=== PATIENT | male | born 1945 | race Caucasian/White ===

== ENCOUNTER → 2017-09-08 08:34 | Outpatient (CLI) | payer MEDICARE, OTHER, SELFPAY ==
[2017-09-08 08:58] LABS: Reticulocyte Count, Percent 0.8 % (0.87-2.60)
[2017-09-08 08:59] LABS: Add Manual Diff / Slide Review NO; Basophils Percent Auto 0.7 % (0-2); Eosinophils Percent Auto 4.4 % (2-4); Hematocrit 41.9 % (41-53); Hemoglobin 14.4 g/dL (13.5-17.5); Mean Corpuscular HGB Conc 34.3 % (30-36); Mean Corpuscular Hemoglobin 30.6 PG (26-34); Mean Corpuscular Volume 89.3 fL (80-100); Monocytes Percent Auto 7.5 % (3-14); Neutrophils Absolute Auto 2900 /uL (3000-5900); Neutrophils Percent Auto 58.4 % (50-75); Platelet Count 138 X10^3/uL (150-400); Red Blood Cell Count 4.69 X10^6/uL (4.5-5.9); Red Cell Distribution Width 16.3 % (11.6-14.8); White Blood Cell Count 4.9 X10^3/uL (4.5-11.0)
[2017-09-08 09:19] LABS: Alanine Aminotransferase 30 IU/L (21-72); Albumin 3.7 g/dL (3.5-5.0); Albumin Globulin Ratio 1.3 (1.0-2.8); Alkaline Phosphatase 72 U/L (38-126); Aspartate Aminotransferase 47 IU/L (17-59); BUN Creatinine Ratio 24.5 (6-22); Bilirubin Total 1.7 mg/dL (0.2-1.3); Blood Urea Nitrogen 27 mg/dL (9-20); Calcium 9.4 mg/dL (8.4-10.2); Carbon Dioxide 27 mmol/L (22-32); Chloride 107 mmol/L (98-107); Estimated Glomerular Filt Rate > 60.0 mL/min (>60); Globulin 2.9 g/dL (1.7-4.1); Glucose 90 mg/dL (80-110); HEMOLYSIS < 15 (0-50); Lactate Dehydrogenase 672 U/L (313-618); Sodium 141 mmol/L (137-145); Total Protein 6.6 g/dL (6.3-8.2)
[2017-09-08 09:39] LABS: HEMOLYSIS < 15 (0-50); Iron 112 ug/dL (49-181)
[2017-09-08 09:50] LABS: Percent Iron Saturation 34 % (20-50); Total Iron Binding Capacity 334 ug/dL (261-462); Transferrin 260 mg/dL (206-381)
[2017-09-08 09:52] LABS: Ferritin 15.8 ng/mL (17.9-464)
== END ==
PROVIDERS: Family Provider Urology; PCP Family Medicine; Visit Provider Internal Medicine Hematology & Oncology
DX: D64.9 Anemia, unspecified (principal)
CPT/HCPCS: 36415; 80053; 82728; 83540; 83550; 83615; 85025; 85045

== ENCOUNTER 2018-07-31 08:44 | Emergency (ER) | payer MEDICARE, OTHER, SELFPAY ==
[2018-07-31 08:55] VITALS: BP 148/91; PULSE 67; RESP 20; TEMP 36.5; O2SAT 99
--- NOTE | 2018-07-31 09:09 | ED.MALEGU ---
HPI - Male Genitourinary General Chief complaint: Urogenital-Male Stated complaint: GROSS HEMATURIA Time Seen by Provider: 07/31/18 08:51 Source: patient Mode of arrival: ambulatory Limitations: no limitations History of Present Illness HPI Narrative: Patient is a 73-year-old male who presents with gross blood in his urine. He has had hematuria in the past. 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 It was removed and he has been monitored by Urology every 6 months. He has not had any read gross in number of years. However he has had intermittent hematuria. All this morning he got up to urinate he noticed he had some pressure. And then he noticed gross blood in his urine. He has some mild abdominal discomfort. No nausea vomiting or fever. He takes aspirin daily MD Complaint: other (Hematuria) Related Data Home Medications Medication Instructions Recorded Confirmed Fish Oil 1,000 mg PO BID #0 07/24/10 03/03/18 CHOLECALCIFEROL (VITAMIN D3) 5,000 iu PO QAM #0 08/05/10 03/03/18 (VITAMIN D) ACETAMINOPHEN (#TYLENOL) 500 mg PO Q4HP #0 05/05/11 03/03/18 [COQ 10] 100 mg PO QPM #0 09/03/15 03/03/18 ascorbic acid (vitamin C) 1,000 mg PO QDAY #0 07/11/16 03/03/18 albuterol sulfate [Ventolin HFA] 2 puff INHALATION Q4-6H PRN 08/26/17 03/03/18 atorvastatin [Lipitor] 5 mg PO DAILY 08/26/17 03/03/18 clobetasol [Temovate] 1 applic TOPICAL BID PRN 08/26/17 03/03/18 diclofenac sodium [Voltaren] 2 g TOPICAL PRN PRN 08/26/17 03/03/18 fluticasone propionate [Flonase 2 spray INTRANASAL QDAY PRN 08/26/17 03/03/18 Allergy Relief] hydrocortisone [Proctosol HC] 1 applic PA QD-BID PRN 08/26/17 03/03/18 metoprolol succinate mg PO DAILY 08/26/17 03/03/18 Previous Rx's Medication Instructions Recorded silver sulfadiazine [Silvadene] 1 % TOPICAL PRN PRN #1 gm 09/18/15 Oral Appliance for Mild IZABELLA #1 ea 04/22/18 Allergies Allergy/AdvReac Type Severity Reaction Status Date / Time succinylcholine Allergy Severe Anaphylaxis Verified 07/31/18 10:41 codeine AdvReac Mild Gastrointestinal Verified 07/31/18 10:41 Upset iodine AdvReac Mild Rash Verified 07/31/18 10:41 morphine AdvReac Mild Gastrointestinal Verified 07/31/18 10:41 Upset Sulfa (Sulfonamide AdvReac Mild Gastrointestinal Verified 07/31/18 10:41 Antibiotics) Upset Review of Systems Review of Systems GENERAL: Denies chills,fever HEENT: Denies throat pain RESPIRATORY: Denies dyspnea, cough, wheezing CARDIOVASCULAR: Denies chest pain, palpitations GASTROINTESTINAL: Denies nausea, vomiting : See HPI MUSCULOSKELETAL: Denies extremity pain, injury SKIN: No rash, no laceration, no pruritus NEUROLOGIC: Denies weakness, dizziness, headache, numbness 8 point review of systems is negative except for those stated above and HPI PFSH Medical History History of obstructive sleep apnea (Suspected) Surgical History H/O aortic valve replacement (Acute) H/O mitral valve replacement (Acute) S/P coronary artery bypass graft x 2 (Acute) History of angioplasty Status post arthroscopy Social History (Updated 03/03/18 @ 12:52 by KELSI Hanson) marital status: details: to gabriel Rashid [facility] household members: spouse lives independently: Yes caregiver/support person: No Smoking Status: Never smoker Social History marital status: details: to gabriel Rashid [facility] household members: spouse lives independently: Yes caregiver/support person: No Smoking Status: Never smoker Exam Initial Vital Signs Initial Vital Signs: Vital Signs Temperature 97.7 F 07/31/18 08:55 Pulse Rate 67 07/31/18 08:55 Respiratory Rate 20 07/31/18 08:55 Blood Pressure 148/91 H 07/31/18 08:55 Pulse Oximetry 99 07/31/18 08:55 GENERAL: Well-appearing, well-nourished and in no acute distress. HEENT: Head atraumatic,EOMI, pupils reactive CARDIOVASCULAR: Regular rate and rhythm without murmurs, rubs or gallops. RESPIRATORY: Breath sounds equal bilaterally, no wheezes rales or rhonchi. ABDOMEN: Soft, nontender. Normoactive bowel sounds all 4 quadrants. No guarding or rebound. : Wilson catheter placed gross blood EXTREMITIES: Normal range of motion, no clubbing or edema. Neurovascularly intact NEUROLOGICAL: Alert and oriented x4.Normal gait and speech. SKIN: Warm, dry, no laceration, no petechiae, no rashes or lesions. Course Orders Ordered: ED Orders 07/31/18 08:50 Urinalysis and Microscopic Stat 07/31/18 11:11 Complete Blood Count AUTO DIFF Stat Comprehensive Metabolic Panel Stat Partial Thromboplastin Time Stat Prothrombin Time INR Stat Type and Screen Stat Discontinued Medications Sodium Chloride (Normal Saline Irrigation) 3,000 ml IRR NOW ONE Stop: 07/31/18 09:07 Last Admin: 07/31/18 09:38 Dose: 3,000 ml Consultations Consultation #1: Dr. Castellano urology consult in regards to hematuria recommend manually irrigation, and then continuous irrigation. Time: 11:12 Consultation #2: Dr. Bergman, hospitalist happily accepts patient for transfer Time: 12:37 Vital Signs - 8 hr 07/31/18 08:55 07/31/18 11:55 07/31/18 13:15 Temperature 97.7 F Pulse Rate 67 63 65 Respiratory Rate 20 15 Blood Pressure 148/91 H Blood Pressure [Left Arm] 131/73 144/89 H Pulse Oximetry 99 96 100 MDM - Male Genitourinary Lab Data Result diagrams: 07/31/18 11:11 07/31/18 11:11 Lab Results 07/31/18 07/31/18 07/31/18 Range/Units 08:50 11:11 11:11 WBC 6.8 (4.5-11.0) X10^3/uL RBC 4.37 L (4.5-5.9) X10^6/uL Hgb 14.9 (13.5-17.5) g/dL Hct 43.7 (41-53) % MCV 99.9 (80-100) fL MCH 34.2 H (26-34) PG MCHC 34.2 (30-36) % RDW 13.2 (11.6-14.8) % Plt Count 137 L (150-400) X10^3/uL Neut % (Auto) 77.1 H (50-75) % Lymph % (Auto) 16.4 L (25-40) % [place] % (Auto) 4.6 (3-14) % Eos % (Auto) 1.3 L (2-4) % Baso % (Auto) 0.6 (0-2) % Neut # (Auto) 5200 (5106-5046) /uL Lymph # (Auto) 1100 (0828-0245) /uL [place] # (Auto) 300 (0-900) /uL Eos # (Auto) 100 (0-450) /uL Baso # (Auto) 0 (0-100) /uL PT 13.7 H (10.1-12.7) SECONDS INR 1.2 (0.9-1.3) APTT 33 (26.4-36.2) SECONDS Sodium (137-145) mmol/L Potassium (3.4-5.1) mmol/L Chloride (98-107) mmol/L Carbon Dioxide (22-32) mmol/L BUN (9-20) mg/dL Creatinine (0.66-1.25) mg/dL Estimated GFR (>60) mL/min BUN/Creatinine Ratio (6-22) Glucose (80-110) mg/dL Calcium (8.4-10.2) mg/dL Total Bilirubin (0.2-1.3) mg/dL AST (17-59) IU/L ALT (21-72) IU/L Alkaline Phosphatase (38-126) U/L Total Protein (6.3-8.2) g/dL Albumin (3.5-5.0) g/dL Globulin (1.7-4.1) g/dL Albumin/Globulin Ratio (1.0-2.8) Urine Color Red Urine Appearance Turbid Urine pH TNP Ur Specific [place] TNP Urine Protein TNP Urine Glucose (UA) TNP Urine Ketones TNP Urine Occult Blood TNP Urine Nitrate TNP Urine Bilirubin TNP Urine Urobilinogen TNP Ur Leukocyte Esterase TNP Urine RBC >100/hpf (0-5/HPF) Urine WBC TNP Ur Squamous Epith Cells TNP Ur Transition Epith Cell TNP Ur Renal Epithelial Cell TNP Calcium Oxalate Crystal TNP Urine Bacteria Not Reportable Ur Culture Indicated? Cult not indicated Micro UA Comment Blood Type Antibody Screen 07/31/18 07/31/18 Range/Units 11:11 11:11 WBC (4.5-11.0) X10^3/uL RBC (4.5-5.9) X10^6/uL Hgb (13.5-17.5) g/dL Hct (41-53) % MCV (80-100) fL MCH (26-34) PG MCHC (30-36) % RDW (11.6-14.8) % Plt Count (150-400) X10^3/uL Neut % (Auto) (50-75) % Lymph % (Auto) (25-40) % [place] % (Auto) (3-14) % Eos % (Auto) (2-4) % Baso % (Auto) (0-2) % Neut # (Auto) (8681-9636) /uL Lymph # (Auto) (9029-4226) /uL [place] # (Auto) (0-900) /uL Eos # (Auto) (0-450) /uL Baso # (Auto) (0-100) /uL PT (10.1-12.7) SECONDS INR (0.9-1.3) APTT (26.4-36.2) SECONDS Sodium 141 (137-145) mmol/L Potassium 4.4 (3.4-5.1) mmol/L Chloride 109 H (98-107) mmol/L Carbon Dioxide 27 (22-32) mmol/L BUN 26 H (9-20) mg/dL Creatinine 1.10 (0.66-1.25) mg/dL Estimated GFR > 60.0 (>60) mL/min BUN/Creatinine Ratio 23.6 H (6-22) Glucose 118 H (80-110) mg/dL Calcium 9.2 (8.4-10.2) mg/dL Total Bilirubin 1.4 H (0.2-1.3) mg/dL AST 46 (17-59) IU/L ALT 32 (21-72) IU/L Alkaline Phosphatase 86 (38-126) U/L Total Protein 6.6 (6.3-8.2) g/dL Albumin 3.7 (3.5-5.0) g/dL Globulin 2.9 (1.7-4.1) g/dL Albumin/Globulin Ratio 1.3 (1.0-2.8) Urine Color Urine Appearance Urine pH Ur Specific [place] Urine Protein Urine Glucose (UA) Urine Ketones Urine Occult Blood Urine Nitrate Urine Bilirubin Urine Urobilinogen Ur Leukocyte Esterase Urine RBC (0-5/HPF) Urine WBC Ur Squamous Epith Cells Ur Transition Epith Cell Ur Renal Epithelial Cell Calcium Oxalate Crystal Urine Bacteria Ur Culture Indicated? Micro UA Comment Blood Type O Positive Antibody Screen Negative MDM Narrative Medical decision making narrative: Initially urine cleared quite easily with continuous irrigation. However sinus irrigation with. It became grossly bloody again. He had a total of 6 L of continuous irrigation and continue to be grossly bloody unable to see through the tube. Urology recommended manual irrigation to remove clots and then continuous irrigation. Initially multiple clots removed, however it continued to bleed grossly bloody without being able to see through the tube. I spoke with Dr. Castellano who agrees in recommends transfer admit to hospitalist He continues to be hemodynamically stable alert oriented x4. Discharge Plan Departure Patient Disposition: [facility] Clinical Impression: Hematuria Qualifiers: Hematuria type: gross Qualified Code(s): R31.0 - Gross hematuria Discharge Date/Time: 07/31/18 14:05 Interventions: ED Discharge Assessment Last Done: 07/31/18 14:23 Activity Restrictions/Additional Instructions: *You have been diagnosed with hematuria *What to do: Keep Wilson catheter in place *Continue to take medications as directed *Follow up with your primary care provider in 2-3 days *Return to ER if you should have blood in urine, can't see through tube or any new, worsening or concerning symptoms Prescriptions: No Action Fish Oil 1,000 mg PO BID Qty: 0 RF: 0 CHOLECALCIFEROL (VITAMIN D3) (VITAMIN D) 5,000 iu PO QAM Qty: 0 RF: 0 ACETAMINOPHEN (#TYLENOL) 500 mg PO Q4HP Qty: 0 RF: 0 [COQ 10] 100 mg PO QPM Qty: 0 RF: 0 silver sulfadiazine [Silvadene] 1 % cream 1 % Topical PRN PRNQty: 1 RF: 0 ascorbic acid (vitamin C) 500 MG tablet 1,000 mg PO QDAY Qty: 0 RF: 0 Oral Appliance for Mild IZABELLA Qty: 1 RF: 0 atorvastatin [Lipitor] 10 mg Tablet 5 mg PO DAILY RF: 0 clobetasol [Temovate] 0.05 % Cream 1 applic TOPICAL BID PRN (Reason: Allergic Symptoms) RF: 0 hydrocortisone [Proctosol HC] 2.5 % Cream With Perineal Applicator 1 applic PA QD-BID PRN (Reason: Skin Irritation) RF: 0 metoprolol succinate 25 mg Tablet Extended Release 24 Hr PO DAILY RF: 0 albuterol sulfate [Ventolin HFA] 90 mcg/actuation Hfa Aerosol Inhaler 2 puff INHALATION Q4-6H PRN (Reason: Bronchodilation) RF: 0 diclofenac sodium [Voltaren] 1 % Gel 2 g TOPICAL PRN PRN (Reason: UNKNOWN) RF: 0 fluticasone propionate [Flonase Allergy Relief] 9.9 ML spray,suspension 2 spray Intranasal QDAY PRN (Reason: Allergy Symptoms) RF: 0 Referrals: Ervin Painter MD [Primary Care Provider] -
[2018-07-31 09:12] LABS: Appearance Urine UA Turbid; Color Urine UA Red
[2018-07-31 09:13] LABS: RBC Urine >100/HPF (0-5/HPF)
--- NOTE | 2018-07-31 09:15 | ED_ITS ---
HPI - Male Genitourinary General Chief complaint: Urogenital-Male Stated complaint: GROSS HEMATURIA Time Seen by Provider: 07/31/18 08:51 Source: patient Mode of arrival: ambulatory Limitations: no limitations History of Present Illness HPI Narrative: Patient is a 73-year-old male who presents with gross blood in hi s urine. He has had hematuria in the past. 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 It was removed and he has been monitored by Urology every 6 months. He has not had any read gross in number of years. However he has had intermittent hematuria. All this morning he got up to urinate he noticed he had some pressure. And then he noticed gross blood in his urine. He has some mild abdominal discomfort. No nausea vomiting or fever. He takes aspirin daily MD Complaint: other (Hematuria) Related Data Home Medications Medication Instructions Recorded Confirmed Fish Oil 1,000 mg PO BID #0 07/24/10 03/03/18 CHOLECALCIFEROL (VITAMIN D3) 5,000 iu PO QAM #0 08/05/10 03/03/18 (VITAMIN D) ACETAMINOPHEN (#TYLENOL) 500 mg PO Q4HP #0 05/05/11 03/03/18 [COQ 10] 100 mg PO QPM #0 09/03/15 03/03/18 ascorbic acid (vitamin C) 1,000 mg PO QDAY #0 07/11/16 03/03/18 albuterol sulfate [Ventolin HFA] 2 puff INHALATION Q4-6H PRN 08/26/17 03/03/18 atorvastatin [Lipitor] 5 mg PO DAILY 08/26/17 03/03/18 clobetasol [Temovate] 1 applic TOPICAL BID PRN 08/26/17 03/03/18 diclofenac sodium [Voltaren] 2 g TOPICAL PRN PRN 08/26/17 03/03/18 fluticasone propionate [Flonase 2 spray INTRANASAL QDAY PRN 08/26/17 03/03/18 Allergy Relief] hydrocortisone [Proctosol HC] 1 applic NE QD-BID PRN 08/26/17 03/03/18 metoprolol succinate mg PO DAILY 08/26/17 03/03/18 Previous Rx's Medication Instructions Recorded silver sulfadiazine [Silvadene] 1 % TOPICAL PRN PRN #1 gm 09/18/15 Oral Appliance for Mild IZABELLA #1 ea 04/22/18 Allergies Allergy/AdvReac Type Severity Reaction Status Date / Time succinylcholine Allergy Severe Anaphylaxis Verified 07/31/18 10:41 codeine AdvReac Mild Gastrointestinal Verified 07/31/18 10:41 Upset iodine AdvReac Mild Rash Verified 07/31/18 10:41 morphine AdvReac Mild Gastrointestinal Verified 07/31/18 10:41 Upset Sulfa (Sulfonamide AdvReac Mild Gastrointestinal Verified 07/31/18 10:41 Antibiotics) Upset Review of Systems Review of Systems GENERAL: Denies chills,fever HEENT: Denies throat pain RESPIRATORY: Denies dyspnea, cough, wheezing CARDIOVASCULAR: Denies chest pain, palpitations GASTROINTESTINAL: Denies nausea, vomiting : See HPI MUSCULOSKELETAL: Denies extremity pain, injury SKIN: No rash, no laceration, no pruritus NEUROLOGIC: Denies weakness, dizziness, headache, numbness 8 point review of systems is negative except for those stated above and HPI PFSH Medical History History of obstructive sleep apnea (Suspected) Surgical History H/O aortic valve replacement (Acute) H/O mitral valve replacement (Acute) S/P coronary artery bypass graft x 2 (Acute) History of angioplasty Status post arthroscopy Social History (Updated 03/03/18 @ 12:52 by KELSI Hanson) marital status: details: to gabriel Rashid [facility] household members: spouse lives independently: Yes caregiver/support person: No Smoking Status: Never smoker Social History marital status: details: to gabriel Rashid [facility] household members: spouse lives independently: Yes caregiver/support person: No Smoking Status: Never smoker Exam Initial Vital Signs Initial Vital Signs: Vital Signs Temperature 97.7 F 07/31/18 08:55 Pulse Rate 67 07/31/18 08:55 Respiratory Rate 20 07/31/18 08:55 Blood Pressure 148/91 H 07/31/18 08:55 Pulse Oximetry 99 07/31/18 08:55 GENERAL: Well-appearing, well-nourished and in no acute distress. HEENT: Head atraumatic,EOMI, pupils reactive CARDIOVASCULAR: Regular rate and rhythm without murmurs, rubs or gallops. RESPIRATORY: Breath sounds equal bilaterally, no wheezes rales or rhonchi. ABDOMEN: Soft, nontender. Normoactive bowel sounds all 4 quadrants. No guarding or rebound. : Wilson catheter placed gross blood EXTREMITIES: Normal range of motion, no clubbing or edema. Neurovascularly inta ct NEUROLOGICAL: Alert and oriented x4.Normal gait and speech. SKIN: Warm, dry, no laceration, no petechiae, no rashes or lesions. Course Orders Ordered: ED Orders 07/31/18 08:50 Urinalysis and Microscopic Stat 07/31/18 11:11 Complete Blood Count AUTO DIFF Stat Comprehensive Metabolic Panel Stat Partial Thromboplastin Time Stat Prothrombin Time INR Stat Type and Screen Stat Discontinued Medications Sodium Chloride (Normal Saline Irrigation) 3,000 ml IRR NOW ONE Stop: 07/31/18 09:07 Last Admin: 07/31/18 09:38 Dose: 3,000 ml Consultations Consultation #1: Dr. Castellano urology consult in regards to hematuria recommend manually irrigation, and then continuous irrigation. Time: 11:12 Consultation #2: Dr. Bergman, hospitalist happily accepts patient for transfer Time: 12:37 Vital Signs - 8 hr 07/31/18 08:55 07/31/18 11:55 07/31/18 13:15 Temperature 97.7 F Pulse Rate 67 63 65 Respiratory Rate 20 15 Blood Pressure 148/91 H Blood Pressure [Left Arm] 131/73 144/89 H Pulse Oximetry 99 96 100 MDM - Male Genitourinary Lab Data Result diagrams: 07/31/18 11:11 07/31/18 11:11 Lab Results 07/31/18 07/31/18 07/31/18 Range/Units 08:50 11:11 11:11 WBC 6.8 (4.5-11.0) X10^3/uL RBC 4.37 L (4.5-5.9) X10^6/uL Hgb 14.9 (13.5-17.5) g/dL Hct 43.7 (41-53) % MCV 99.9 (80-100) fL MCH 34.2 H (26-34) PG MCHC 34.2 (30-36) % RDW 13.2 (11.6-14.8) % Plt Count 137 L (150-400) X10^3/uL Neut % (Auto) 77.1 H (50-75) % Lymph % (Auto) 16.4 L (25-40) % [place] % (Auto) 4.6 (3-14) % Eos % (Auto) 1.3 L (2-4) % Baso % (Auto) 0.6 (0-2) % Neut # (Auto) 5200 (4899-7199) /uL Lymph # (Auto) 1100 (7820-2251) /uL [place] # (Auto) 300 (0-900) /uL Eos # (Auto) 100 (0-450) /uL Baso # (Auto) 0 (0-100) /uL PT 13.7 H (10.1-12.7) SECONDS INR 1.2 (0.9-1.3) APTT 33 (26.4-36.2) SECONDS Sodium (137-145) mmol/L Potassium (3.4-5.1) mmol/L Chloride (98-107) mmol/L Carbon Dioxide (22-32) mmol/L BUN (9-20) mg/dL Creatinine (0.66-1.25) mg/dL Estimated GFR (>60) mL/min BUN/Creatinine Ratio (6-22) Glucose (80-110) mg/dL Calcium (8.4-10.2) mg/dL Total Bilirubin (0.2-1.3) mg/dL AST (17-59) IU/L ALT (21-72) IU/L Alkaline Phosphatase (38-126) U/L Total Protein (6.3-8.2) g/dL Albumin (3.5-5.0) g/dL Globulin (1.7-4.1) g/dL Albumin/Globulin Ratio (1.0-2.8) Urine Color Red Urine Appearance Turbid Urine pH TNP Ur Specific [place] TNP Urine Protein TNP Urine Glucose (UA) TNP Urine Ketones TNP Urine Occult Blood TNP Urine Nitrate TNP Urine Bilirubin TNP Urine Urobilinogen TNP Ur Leukocyte Esterase TNP Urine RBC >100/hpf (0-5/HPF) Urine WBC TNP Ur Squamous Epith Cells TNP Ur Transition Epith Cell TNP Ur Renal Epithelial Cell TNP Calcium Oxalate Crystal TNP Urine Bacteria Not Reportable Ur Culture Indicated? Cult not indicated Micro UA Comment Blood Type Antibody Screen 07/31/18 07/31/18 Range/Units 11:11 11:11 WBC (4.5-11.0) X10^3/uL RBC (4.5-5.9) X10^6/uL Hgb (13.5-17.5) g/dL Hct (41-53) % MCV (80-100) fL MCH (26-34) PG MCHC (30-36) % RDW (11.6-14.8) % Plt Count (150-400) X10^3/uL Neut % (Auto) (50-75) % Lymph % (Auto) (25-40) % [place] % (Auto) (3-14) % Eos % (Auto) (2-4) % Baso % (Auto) (0-2) % Neut # (Auto) (1653-4599) /uL Lymph # (Auto) (3462-2502) /uL [place] # (Auto) (0-900) /uL Eos # (Auto) (0-450) /uL Baso # (Auto) (0-100) /uL PT (10.1-12.7) SECONDS INR (0.9-1.3) APTT (26.4-36.2) SECONDS Sodium 141 (137-145) mmol/L Potassium 4.4 (3.4-5.1) mmol/L Chloride 109 H (98-107) mmol/L Carbon Dioxide 27 (22-32) mmol/L BUN 26 H (9-20) mg/dL Creatinine 1.10 (0.66-1.25) mg/dL Estimated GFR > 60.0 (>60) mL/min BUN/Creatinine Ratio 23.6 H (6-22) Glucose 118 H (80-110) mg/dL Calcium 9.2 (8.4-10.2) mg/dL Total Bilirubin 1.4 H (0.2-1.3) mg/dL AST 46 (17-59) IU/L ALT 32 (21-72) IU/L Alkaline Phosphatase 86 (38-126) U/L Total Protein 6.6 (6.3-8.2) g/dL Albumin 3.7 (3.5-5.0) g/dL Globulin 2.9 (1.7-4.1) g/dL Albumin/Globulin Ratio 1.3 (1.0-2.8) Urine Color Urine Appearance Urine pH Ur Specific [place] Urine Protein Urine Glucose (UA) Urine Ketones Urine Occult Blood Urine Nitrate Urine Bilirubin Urine Urobilinogen Ur Leukocyte Esterase Urine RBC (0-5/HPF) Urine WBC Ur Squamous Epith Cells Ur Transition Epith Cell Ur Renal Epithelial Cell Calcium Oxalate Crystal Urine Bacteria Ur Culture Indicated? Micro UA Comment Blood Type O Positive Antibody Screen Negative MDM Narrative Medical decision making narrative: Initially urine cleared quite easily with continuous irrigation. However sinus irrigation with. It became grossly bloody again. He had a total of 6 L of continuous irrigation and continue to be grossly bloody unable to see through the tube. Urology recommended manual irrigation to remove clots and then continuous irrigation. Initially multiple clots removed, however it continued to bleed grossly bloody without being able to see through the tube. I spoke with Dr. Castellano who agrees in recommends transfer admit to hospitalist He continues to be hemodynamically stable alert oriented x4. Discharge Plan Departure Patient Disposition: [facility] Clinical Impression: Hematuria Qualifiers: Hematuria type: gross Qualified Code(s): R31.0 - Gross hematuria Discharge Date/Time: 07/31/18 14:05 Interventions: ED Discharge Assessment Last Done: 07/31/18 14:23 Activity Restrictions/Additional Instructions: *You have been diagnosed with hematuria *What to do: Keep Wilson catheter in place *Continue to take medications as directed *Follow up with your primary care provider in 2-3 days *Return to ER if you should have blood in urine, can't see through tube or any new, worsening or concerning symptoms Prescriptions: No Action Fish Oil 1,000 mg PO BID Qty: 0 RF: 0 CHOLECALCIFEROL (VITAMIN D3) (VITAMIN D) 5,000 iu PO QAM Qty: 0 RF: 0 ACETAMINOPHEN (#TYLENOL) 500 mg PO Q4HP Qty: 0 RF: 0 [COQ 10] 100 mg PO QPM Qty: 0 RF: 0 silver sulfadiazine [Silvadene] 1 % cream 1 % Topical PRN PRNQty: 1 RF: 0 ascorbic acid (vitamin C) 500 MG tablet 1,000 mg PO QDAY Qty: 0 RF: 0 Oral Appliance for Mild IZABELLA Qty: 1 RF: 0 atorvastatin [Lipitor] 10 mg Tablet 5 mg PO DAILY RF: 0 clobetasol [Temovate] 0.05 % Cream 1 applic TOPICAL BID PRN (Reason: Allergic Symptoms) RF: 0 hydrocortisone [Proctosol HC] 2.5 % Cream With Perineal Applicator 1 applic NE QD-BID PRN (Reason: Skin Irritation) RF: 0 metoprolol succinate 25 mg Tablet Extended Release 24 Hr PO DAILY RF: 0 albuterol sulfate [Ventolin HFA] 90 mcg/actuation Hfa Aerosol Inhaler 2 puff INHALATION Q4-6H PRN (Reason: Bronchodilation) RF: 0 diclofenac sodium [Voltaren] 1 % Gel 2 g TOPICAL PRN PRN (Reason: UNKNOWN) RF: 0 fluticasone propionate [Flonase Allergy Relief] 9.9 ML spray,suspension 2 spray Intranasal QDAY PRN (Reason: Allergy Symptoms) RF: 0 Referrals: Ervin Painter MD [Primary Care Provider] -
[2018-07-31 09:16] LABS: Culture Indicated Urine Cult Not Indicated
[2018-07-31] MEDS: SODIUM CHLORIDE IRRIG SOLUTION 3,000 ML 3000 ML IRR (09:38)
[2018-07-31 11:28] LABS: Add Manual Diff / Slide Review NO; Basophils Absolute Auto 0 /uL (0-100); Basophils Percent Auto 0.6 % (0-2); Eosinophils Absolute Auto 100 /uL (0-450); Eosinophils Percent Auto 1.3 % (2-4); Hematocrit 43.7 % (41-53); Hemoglobin 14.9 g/dL (13.5-17.5); Lymphocytes Absolute Auto 1100 /uL (1100-4500); Lymphocytes Percent Auto 16.4 % (25-40); Mean Corpuscular HGB Conc 34.2 % (30-36); Mean Corpuscular Hemoglobin 34.2 PG (26-34); Mean Corpuscular Volume 99.9 fL (80-100); Monocytes Absolute Auto 300 /uL (0-900); Monocytes Percent Auto 4.6 % (3-14); Neutrophils Absolute Auto 5200 /uL (1500-7000); Neutrophils Percent Auto 77.1 % (50-75); Platelet Count 137 X10^3/uL (150-400); Red Blood Cell Count 4.37 X10^6/uL (4.5-5.9); Red Cell Distribution Width 13.2 % (11.6-14.8); White Blood Cell Count 6.8 X10^3/uL (4.5-11.0)
[2018-07-31 11:30] LABS: INR 1.2 (0.9-1.3); Prothrombin Time 13.7 SECONDS (10.1-12.7)
[2018-07-31 11:33] LABS: PTT Partial Thromboplastin Tim 33 SECONDS (26.4-36.2)
[2018-07-31 11:34] LABS: Alanine Aminotransferase 32 IU/L (21-72); Albumin 3.7 g/dL (3.5-5.0); Albumin Globulin Ratio 1.3 (1.0-2.8); Alkaline Phosphatase 86 U/L (38-126); Aspartate Aminotransferase 46 IU/L (17-59); BUN Creatinine Ratio 23.6 (6-22); Bilirubin Total 1.4 mg/dL (0.2-1.3); Blood Urea Nitrogen 26 mg/dL (9-20); Calcium 9.2 mg/dL (8.4-10.2); Carbon Dioxide 27 mmol/L (22-32); Chloride 109 mmol/L (98-107); Estimated Glomerular Filt Rate > 60.0 mL/min (>60); Globulin 2.9 g/dL (1.7-4.1); Glucose 118 mg/dL (80-110); HEMOLYSIS 20 (0-50); Potassium 4.4 mmol/L (3.4-5.1); Sodium 141 mmol/L (137-145); Total Protein 6.6 g/dL (6.3-8.2)
[2018-07-31 11:55] VITALS: BP 131/73; PULSE 63; O2SAT 96
--- NOTE | 2018-07-31 12:04 | PC.NURSE ---
Manual irrigation with ns 1 liter with 1 liter out then 1 liter ns irrigation with clear pink urine
[2018-07-31 13:15] VITALS: BP 144/89; PULSE 65; RESP 15; O2SAT 100
--- NOTE | 2018-07-31 13:54 | PC.NURSE ---
Repeat of bladder irrigatiion and will transfer to [facility] for admission
== END 2018-07-31 14:05 | disposition short-term general hospital (02) ==
PROVIDERS: Emergency Provider Emergency Medicine; Family Provider Urology; PCP Family Medicine
DX: R31.0 Gross hematuria (principal)
CPT/HCPCS: 36591; 80053; 81001; 85025; 85610; 85730; 86850; 86900; 86901; 99283

== ENCOUNTER → 2018-09-02 15:28 | Outpatient (CLI) | payer MEDICARE, OTHER, SELFPAY ==
[2018-09-02 15:48] LABS: Add Manual Diff / Slide Review NO; Basophils Absolute Auto 0 /uL (0-100); Basophils Percent Auto 0.7 % (0-2); Eosinophils Absolute Auto 200 /uL (0-450); Eosinophils Percent Auto 3.7 % (2-4); Hematocrit 39.8 % (41-53); Hemoglobin 13.9 g/dL (13.5-17.5); Lymphocytes Absolute Auto 1500 /uL (1100-4500); Lymphocytes Percent Auto 23.6 % (25-40); Mean Corpuscular HGB Conc 34.9 % (30-36); Mean Corpuscular Hemoglobin 34.1 PG (26-34); Mean Corpuscular Volume 97.8 fL (80-100); Monocytes Absolute Auto 400 /uL (0-900); Monocytes Percent Auto 6.7 % (3-14); Neutrophils Absolute Auto 4300 /uL (1500-7000); Neutrophils Percent Auto 65.3 % (50-75); Platelet Count 141 X10^3/uL (150-400); Red Blood Cell Count 4.07 X10^6/uL (4.5-5.9); Red Cell Distribution Width 13.3 % (11.6-14.8); White Blood Cell Count 6.5 X10^3/uL (4.5-11.0)
[2018-09-02 16:03] LABS: Alanine Aminotransferase 20 IU/L (21-72); Albumin 3.4 g/dL (3.5-5.0); Albumin Globulin Ratio 1.2 (1.0-2.8); Alkaline Phosphatase 70 U/L (38-126); Aspartate Aminotransferase 35 IU/L (17-59); BUN Creatinine Ratio 18.3 (6-22); Bilirubin Total 0.9 mg/dL (0.2-1.3); Blood Urea Nitrogen 22 mg/dL (9-20); Calcium 9.4 mg/dL (8.4-10.2); Carbon Dioxide 25 mmol/L (22-32); Chloride 109 mmol/L (98-107); Estimated Glomerular Filt Rate 59.2 mL/min (>60); Globulin 2.9 g/dL (1.7-4.1); Glucose 100 mg/dL (80-110); HEMOLYSIS < 15 (0-50); Potassium 4.1 mmol/L (3.4-5.1); Sodium 140 mmol/L (137-145); Total Protein 6.3 g/dL (6.3-8.2)
[2018-09-02 16:38] LABS: Ferritin 19.4 ng/mL (17.9-464)
== END ==
PROVIDERS: Family Provider Urology; PCP Family Medicine
DX: D64.9 Anemia, unspecified (principal)
CPT/HCPCS: 36415; 80053; 82728; 85025

== ENCOUNTER → 2019-01-25 11:08 | Outpatient (CLI) | payer MEDICARE, OTHER, SELFPAY ==
--- NOTE | 2019-01-25 | DI.US.S_ITS ---
PROCEDURE: US RENAL COMPLETE INDICATIONS: CALCULUS OF KIDNEY TECHNIQUE: Real-time scanning was performed of the kidneys and bladder, with image documentation. COMPARISON: [facility], US, RENAL COMPLETE, 07/27/2013, 10:12. [facility] Ultrasound, US, US RENAL COMPLETE, 02/18/2017, 14:06. [facility] Ultrasound, US, US RENAL COMPLETE, 07/29/2018, 11:32. [facility], CT, CT IVP, 08/01/2018, 16:37. FINDINGS: Kidneys: Kidneys are normal in size. Right kidney measures 12.9 cm long; left kidney measures 13.0 cm long. Right renal cortical thickness is 1.4 cm; left renal cortical thickness is 1.2 cm. Renal cortical echotexture is normal. No hydronephrosis or nephrolithiasis. No suspicious solid mass lesions. 11.9 cm septated right renal cyst appears similar to prior CT and ultrasound size differences likely technically related. Bladder: Pre-void bladder volume is 616 mL. Post-void residual is 24 mL. Pre-void images demonstrate no intraluminal masses or stones. On pre-void images, bilateral ureteral jets are noted with color Doppler interrogation. Urinary bladder is prominent and lobular in appearance. Miscellaneous: There is a heterogeneously enlarged prostate noted. No free pelvic fluid. IMPRESSION: 1. Large septated right renal cyst appearing grossly unchanged from prior examinations with size differences believed to be related to differences in technique. 2. No evidence of hydronephrosis. Dictated by: Nando Urena [facility] Interpreted: Floyd Oliver MD on 01/25/2019 at 13:38 Approved by: Floyd Oliver M.D. on 01/25/2019 at 16:38
== END ==
PROVIDERS: Family Provider Urology; PCP Family Medicine; Visit Provider Urology
DX: N20.0 Calculus of kidney (principal); N28.1 Cyst of kidney, acquired; N40.0 Benign prostatic hyperplasia without lower urinary tract symptoms
CPT/HCPCS: 76770

== ENCOUNTER → 2019-09-07 07:55 | Outpatient (CLI) | payer MEDICARE, OTHER, SELFPAY ==
[2019-09-07 09:30] LABS: Add Manual Diff / Slide Review NO; Basophils Absolute Auto 0 /uL (0-100); Basophils Percent Auto 0.8 % (0-2); Eosinophils Absolute Auto 200 /uL (0-450); Hematocrit 41.6 % (41-53); Hemoglobin 14.4 g/dL (13.5-17.5); Lymphocytes Absolute Auto 1300 /uL (1100-4500); Mean Corpuscular HGB Conc 34.5 % (30-36); Mean Corpuscular Hemoglobin 34.4 PG (26-34); Mean Corpuscular Volume 99.8 fL (80-100); Monocytes Absolute Auto 300 /uL (0-900); Monocytes Percent Auto 6.3 % (3-14); Neutrophils Absolute Auto 3300 /uL (1500-7000); Neutrophils Percent Auto 63.9 % (50-75); Platelet Count 112 X10^3/uL (150-400); Red Blood Cell Count 4.17 X10^6/uL (4.5-5.9); Red Cell Distribution Width 13.4 % (11.6-14.8); White Blood Cell Count 5.2 X10^3/uL (4.5-11.0)
[2019-09-07 09:44] LABS: Alanine Aminotransferase 24 IU/L (<50); Albumin 3.6 g/dL (3.5-5.0); Albumin Globulin Ratio 1.4 (1.0-2.8); Alkaline Phosphatase 77 U/L (38-126); Aspartate Aminotransferase 41 IU/L (17-59); BUN Creatinine Ratio 24.8 (6-22); Bilirubin Total 1.4 mg/dL (0.2-1.3); Blood Urea Nitrogen 26 mg/dL (9-20); Calcium 9.4 mg/dL (8.4-10.2); Carbon Dioxide 27 mmol/L (22-32); Chloride 111 mmol/L (98-107); Estimated Glomerular Filt Rate > 60.0 mL/min (>60); Globulin 2.5 g/dL (1.7-4.1); Glucose 81 mg/dL (80-110); HEMOLYSIS < 15 (0-50); Potassium 4.3 mmol/L (3.4-5.1); Sodium 140 mmol/L (137-145); Total Protein 6.1 g/dL (6.3-8.2)
[2019-09-07 10:19] LABS: Ferritin 42 ng/mL (18-464)
== END ==
PROVIDERS: Family Provider Urology; PCP Family Medicine; Referring Provider Internal Medicine; Visit Provider Internal Medicine
DX: D64.9 Anemia, unspecified (principal)
CPT/HCPCS: 36415; 80053; 82728; 85025

== ENCOUNTER → 2020-08-08 13:11 | Outpatient (CLI) | payer MEDICARE, OTHER, SELFPAY ==
--- NOTE | 2020-08-08 | DI.CT.S_ITS ---
PROCEDURE: CT ABDOMEN WO/W CON INDICATIONS: Cyst of kidney, acquired TECHNIQUE: Optional 5 mm thick noncontrast images acquired from the diaphragm to the iliac crests. After the administration of intravenous contrast, 5 mm thick images again acquired from the diaphragm to the iliac crests in the arterial and urographic phases. 5 mm thick coronal and sagittal reformats were then acquired. For radiation dose reduction, the following was used: automated exposure control, adjustment of mA and/or kV according to patient size. COMPARISON: [facility], CT, CT ABDOMEN PELVIS WITH CONTRAST, 04/25/2020, 16:07. [facility], CT, IVP (ABD & PEL WWO CONTRAST), 02/27/2016, 12:04. [facility], CT, CT IVP, 08/01/2018, 16:37. FINDINGS: Image quality: Excellent. Lung bases: Lung bases are clear. Heart size is normal. Genitourinary: There are bilateral renal calculi. 2 stones are seen in the right kidney measuring 2-3 mm. 4 stones are seen in left kidney measuring 1-4 mm. No hydronephrosis. There is a large cystic mass in the right kidney arising from the inferior lateral cortex measuring 8.4 cm AP x 7.6 cm transverse x 8.5 cm cephalocaudal. The cyst demonstrates thin wall with rim calcification. No internal septa. Compared to the last examination, it appears slightly decreased in size. The perceived solid component is no longer visualized. Other solid organs: Liver is normal in size and enhancement. Multiple hepatic cysts are identified. Gallbladder is normal. Biliary system is non dilated. Pancreas enhances normally. Spleen is normal in size and enhancement. No adrenal nodules. Peritoneum and bowel: Stomach is distended and filled with debris. Unenhanced bowel loops are normal in wall thickness and caliber. No free fluid or air. Nodes and vessels: No retroperitoneal or mesenteric adenopathy by size criteria. Aorta and inferior vena cava are normal in caliber. Moderate atherosclerotic calcifications of aorta and iliac arteries. Bones: No suspicious bony lesions. No vertebral body compression fractures. Degenerative changes are noted in lower thoracic spine and lumbar spine. Miscellaneous: No ventral hernias. IMPRESSION: 1. A large cystic mass is again seen in right kidney measuring 8.4 x 7.6 x 8.5 cm. Compared to the last CT dated 04/25/2020, it appears slightly decreased in size. The perceived solid component involving the inferior aspect of the mass is no longer visualized. It was probably caused by internal debris/hemorrhage. 2. Small nonobstructive renal calculi bilaterally. 3. Moderate atherosclerotic calcifications. 4. Multiple liver cysts. 5. Distended stomach filled with debris. Dictated by: Melchor George M.D. on 08/08/2020 at 16:51 Approved by: Melchor George M.D. on 08/08/2020 at 18:09
== END ==
PROVIDERS: Family Provider Urology; PCP Family Medicine; Referring Provider Urology; Visit Provider Urology
DX: N28.1 Cyst of kidney, acquired (principal); N20.0 Calculus of kidney; K76.89 Other specified diseases of liver; I70.0 Atherosclerosis of aorta; I70.209 Unspecified atherosclerosis of native arteries of extremities, unspecified extremity
CPT/HCPCS: 74170; Q9967

== ENCOUNTER → 2020-09-28 15:49 | Outpatient (CLI) | payer MEDICARE, OTHER, SELFPAY ==
[2020-09-28 16:41] LABS: Cholesterol 152 mg/dL (140-199); HDL Cholesterol 76 mg/dL (40-60); LDL Cholesterol Calculated 65 mg/dL (<100); Triglycerides 53 mg/dL (35-150)
== END ==
PROVIDERS: Family Provider Urology; PCP Family Medicine; Referring Provider Internal Medicine Cardiovascular Disease; Visit Provider Internal Medicine Cardiovascular Disease
DX: I25.810 Atherosclerosis of coronary artery bypass graft(s) without angina pectoris (principal); I48.92 Unspecified atrial flutter; I34.0 Nonrheumatic mitral (valve) insufficiency
CPT/HCPCS: 36415; 80061

== ENCOUNTER → 2021-08-16 12:08 | Outpatient (CLI) | payer MEDICARE, OTHER, SELFPAY ==
--- NOTE | 2021-08-16 | DI.US.S_ITS ---
PROCEDURE: US PERIPH VENOUS LOW EXTREM LT INDICATIONS: Left leg pain and swelling, please evaluate for DVT TECHNIQUE: Real-time imaging, as well as color and pulse Doppler interrogation, were performed of the lower extremity deep veins from the inguinal ligament to the popliteal fossa. COMPARISON: None. FINDINGS: The common femoral, femoral and popliteal veins are normally compressible, and free of intraluminal thrombus. Color and pulse Doppler demonstrate normal phasic intraluminal flow. There is normal augmentation response to distal compression maneuver. IMPRESSION: Negative for deep venous thrombosis. Dictated by: Luis Colon M.D. on 08/19/2021 at 14:04 Approved by: Luis Colon M.D. on 08/19/2021 at 14:04
== END ==
PROVIDERS: Family Provider Urology; PCP Family Medicine; Referring Provider Family Medicine; Visit Provider Family Medicine
DX: M79.89 Other specified soft tissue disorders (principal); R79.89 Other specified abnormal findings of blood chemistry; M79.605 Pain in left leg
CPT/HCPCS: 93971

== ENCOUNTER → 2022-06-23 10:21 | Outpatient (CLI) | payer MEDICARE, OTHER, SELFPAY ==
--- NOTE | 2022-06-23 10:26 | DI.RAD.S_ITS ---
PROCEDURE: XR CHEST 2V INDICATIONS: SOB AND FATIGUE TECHNIQUE: 2 views of the chest were acquired. COMPARISON: [facility], , CHEST 2 VIEW, 05/21/2017, 16:15. FINDINGS: Surgical changes and devices: Patient is status post median sternotomy and valvular replacement. Lungs and pleura: No acute airspace opacities. No pleural effusion or pneumothorax. Mediastinum: Mediastinal contours are normal. Heart size is normal. Bones and chest wall: No suspicious bony abnormalities. Soft tissues appear unremarkable. IMPRESSION: No acute cardiopulmonary findings. Dictated by: Mira Ferro M.D. on 06/23/2022 at 12:29 Approved by: Mira Ferro M.D. on 06/23/2022 at 12:30
[2022-06-23 11:34] LABS: Hematocrit 38.2 % (41-53); Hemoglobin 13.2 g/dL (13.5-17.5); Mean Corpuscular HGB Conc 34.6 % (30-36); Mean Corpuscular Hemoglobin 33.8 PG (26-34); Mean Corpuscular Volume 97.8 fL (80-100); Platelet Count 176 X10^3/uL (150-400); Red Cell Distribution Width 12.9 % (11.6-14.8); White Blood Cell Count 7.6 X10^3/uL (4.5-11.0)
[2022-06-23 12:15] LABS: Alanine Aminotransferase 19 IU/L (<50); Albumin 3.3 g/dL (3.5-5.0); Albumin Globulin Ratio 1.2 (1.0-2.8); Alkaline Phosphatase 83 U/L (38-126); Aspartate Aminotransferase 27 IU/L (17-59); BUN Creatinine Ratio 19.1 (6-22); Bilirubin Total 0.9 mg/dL (0.2-1.3); Blood Urea Nitrogen 21 mg/dL (9-20); Carbon Dioxide 26 mmol/L (22-32); Chloride 109 mmol/L (98-107); Estimated Glomerular Filt Rate > 60 mL/min (>60); Globulin 2.7 g/dL (1.7-4.1); Glucose 86 mg/dL (80-110); HEMOLYSIS < 15 (0-50); Potassium 4.3 mmol/L (3.4-5.1); Sodium 139 mmol/L (137-145)
[2022-06-23 12:35] LABS: Thyroid Stimulating Hormone < 0.015 uIU/mL (0.47-4.68)
[2022-06-25 10:20] LABS: NT-proBNP (BNP-Adult 18+) 162 pg/mL (<450)
[2022-06-26 10:00] LABS: Free T3, Triiodothyronine Free 5.04 pg/mL (2.77-5.27); Free T4, Direct Thyroxine 2.08 ng/dL (0.78-2.19)
== END ==
PROVIDERS: Family Provider Urology; PCP Family Medicine; Referring Provider Nurse Practitioner; Visit Provider Nurse Practitioner
DX: I34.0 Nonrheumatic mitral (valve) insufficiency (principal); I50.30 Unspecified diastolic (congestive) heart failure; R06.02 Shortness of breath; R53.83 Other fatigue
CPT/HCPCS: 36415; 71046; 80053; 83880; 84439; 84443; 84481; 85027

== ENCOUNTER → 2022-07-02 15:47 | Outpatient (CLI) | payer MEDICARE, OTHER, SELFPAY ==
--- NOTE | 2022-07-02 15:50 | DI.US.S_ITS ---
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 COMPARISON: [facility], CT, CT SOFT TISSUE NECK WITH CONTRAST, 06/27/2022, 16:02. FINDINGS: Right: Thyroid lobe measures 6.0 x 1.9 x 2.5 cm, and is heterogeneous in echotexture. Left: Thyroid lobe measures 5.4 x 1.2 x 2.2 cm, and is heterogeneous in echotexture. Isthmus: 6 mm thick. Nodule number: 1 Location: Inferior left thyroid lobe Size: 0.8 x 0.7 x 0.7 cm. Composition: Solid Echogenicity: Isoechoic Shape: wider than tall. Margins: Smooth Echogenic foci: None Total points: 3 ACR TI-RADS category: Mildly suspicious Other findings: No adenopathy identified in the neck. IMPRESSION: Heterogeneous thyroid gland with possible focal heterogeneous thyroid tissue versus isoechoic nodule in the inferior left thyroid lobe measuring 0.8 cm in size with characteristics of aTI-RADS 3 (mildly suspicious) nodule. Follow-up recommendations as below: ACR TI-RADS definitions and recommendations: TI-RADS 1 (benign): 0 points. FNA not needed. TI-RADS 2 (not suspicious): 2 points. FNA not needed. TI-RADS 3 (mildly suspicious): 3 points. * FNA if 2.5 cm or larger, follow up if 1.5 cm or larger (at 1, 3, and 5 years). TI-RADS 4 (moderately suspicious): 4-6 points. * FNA if 1.5 cm or larger, follow up if 1 cm or larger (at 1, 2, 3, and 5 years). TI-RADS 5 (highly suspicious): 7 points or more. * FNA if 1 cm or larger, follow up if 0.5 cm or larger (every year for 5 years). Dictated by: Gabe Marin M.D. on 07/03/2022 at 8:01 Approved by: Gabe Marin M.D. on 07/03/2022 at 8:06
== END ==
PROVIDERS: Family Provider Urology; PCP Family Medicine; Referring Provider Nurse Practitioner; Visit Provider Nurse Practitioner
DX: E05.90 Thyrotoxicosis, unspecified without thyrotoxic crisis or storm (principal)
CPT/HCPCS: 76536

== ENCOUNTER → 2023-03-03 11:16 | Outpatient (CLI) | payer MEDICARE, OTHER, SELFPAY ==
[2023-03-03 19:58] LABS: HEMOLYSIS < 15 (0-50); Iron 119 ug/dL (49-181)
[2023-03-03 20:09] LABS: Percent Iron Saturation 53 % (20-50); Total Iron Binding Capacity 224 ug/dL (261-462); Transferrin 185 mg/dL (206-381)
[2023-03-06 13:43] LABS: Calcium 9.1 mg/dL (8.6-10.2); Parathyroid Hormone, Intact 35 pg/mL (15-65)
== END ==
PROVIDERS: Family Provider Urology; PCP Family Medicine; Visit Provider Family Medicine
DX: M11.261 Other chondrocalcinosis, right knee (principal)
CPT/HCPCS: 82310; 83540; 83550; 83970

== ENCOUNTER → 2023-04-06 12:02 | Outpatient (CLI) | payer MEDICARE, OTHER, SELFPAY ==
[2023-04-06 20:45] LABS: Cholesterol 167 mg/dL (140-199); Glucose 93 mg/dL (80-110); HDL Cholesterol 75 mg/dL (40-60); LDL Cholesterol Calculated 81 mg/dL (<100); Triglycerides 56 mg/dL (35-150)
[2023-04-06 21:21] LABS: Prostate Specific Antigen Scrn 0.623 ng/mL (0.1-4.0)
[2023-04-06 21:29] LABS: Hep C Virus Ab w/Reflex Quant NEGATIVE s/c (NEGATIVE)
== END ==
PROVIDERS: Family Provider Urology; PCP Family Medicine; Visit Provider Family Medicine
DX: Z13.1 Encounter for screening for diabetes mellitus (principal); Z13.6 Encounter for screening for cardiovascular disorders; Z12.5 Encounter for screening for malignant neoplasm of prostate; Z11.59 Encounter for screening for other viral diseases; Z13.220 Encounter for screening for lipoid disorders
CPT/HCPCS: 80061; 82947; 86803; G0103

== ENCOUNTER → 2024-05-05 10:55 | Outpatient (CLI) | payer MEDICARE, OTHER, SELFPAY ==
[2024-05-05 12:23] LABS: Add Manual Diff / Slide Review NO; Basophils Absolute Auto 100 /uL (0-100); Basophils Percent Auto 1.1 % (0-2); Eosinophils Absolute Auto 200 /uL (0-450); Eosinophils Percent Auto 4.4 % (2-4); Hematocrit 41.8 % (41-53); Hemoglobin 14.5 g/dL (13.5-17.5); Lymphocytes Absolute Auto 1300 /uL (1100-4500); Lymphocytes Percent Auto 24.4 % (25-40); Mean Corpuscular HGB Conc 34.6 % (30-36); Mean Corpuscular Hemoglobin 34.6 PG (26-34); Monocytes Absolute Auto 300 /uL (0-900); Monocytes Percent Auto 6.2 % (3-14); Neutrophils Absolute Auto 3500 /uL (1500-7000); Neutrophils Percent Auto 63.9 % (50-75); Platelet Count 127 X10^3/uL (150-400); Red Blood Cell Count 4.18 X10^6/uL (4.5-5.9); Red Cell Distribution Width 13.9 % (11.6-14.8); White Blood Cell Count 5.5 X10^3/uL (4.5-11.0)
[2024-05-05 12:32] LABS: HEMOLYSIS < 15 (0-50); Iron 143 ug/dL (49-181)
[2024-05-05 12:43] LABS: Percent Iron Saturation 61 % (20-50); Total Iron Binding Capacity 234 ug/dL (261-462); Transferrin 173 mg/dL (206-381)
[2024-05-05 12:45] LABS: Alanine Aminotransferase 23 IU/L (<50); Albumin 3.7 g/dL (3.5-5.0); Albumin Globulin Ratio 1.4 (1.0-2.8); Alkaline Phosphatase 68 U/L (38-126); Aspartate Aminotransferase 42 IU/L (17-59); BUN Creatinine Ratio 19.1 (6-22); Bilirubin Total 2.1 mg/dL (0.2-1.3); Blood Urea Nitrogen 22 mg/dL (9-20); Calcium 9.4 mg/dL (8.4-10.2); Carbon Dioxide 24 mmol/L (22-32); Chloride 110 mmol/L (98-107); Cholesterol 157 mg/dL (140-199); Estimated Glomerular Filt Rate > 60 mL/min (>60); Globulin 2.6 g/dL (1.7-4.1); Glucose 90 mg/dL (80-110); HDL Cholesterol 78 mg/dL (40-60); HEMOLYSIS < 15 (0-50); LDL Cholesterol Calculated 68 mg/dL (<100); Potassium 4.4 mmol/L (3.4-5.1); Sodium 137 mmol/L (137-145); Total Protein 6.3 g/dL (6.3-8.2); Triglycerides 56 mg/dL (35-150)
[2024-05-05 12:50] LABS: Free T3, Triiodothyronine Free 3.56 pg/mL (2.77-5.27)
[2024-05-05 13:04] LABS: TSH w/ Reflex to FT4 1.93 uIU/mL (0.47-4.68)
[2024-05-05 13:14] LABS: Prostate Specific Antigen Scrn 0.541 ng/mL (0.1-4.0)
== END ==
PROVIDERS: Family Provider Urology; PCP Family Medicine; Referring Provider Family Medicine; Visit Provider Family Medicine
DX: D64.9 Anemia, unspecified (principal); Z12.5 Encounter for screening for malignant neoplasm of prostate; I10 Essential (primary) hypertension; N28.1 Cyst of kidney, acquired; Z13.1 Encounter for screening for diabetes mellitus; Z13.6 Encounter for screening for cardiovascular disorders
CPT/HCPCS: 36415; 80053; 80061; 83540; 83550; 84443; 84481; 85025; G0103

== ENCOUNTER → 2024-12-15 11:55 | Outpatient (CLI) | payer MEDICARE, OTHER, SELFPAY ==
[2024-12-15 13:06] LABS: Alanine Aminotransferase 19 IU/L (<50); Albumin 3.6 g/dL (3.5-5.0); Albumin Globulin Ratio 1.3 (1.0-2.8); Alkaline Phosphatase 71 U/L (38-126); Blood Urea Nitrogen 21 mg/dL (9-20); Calcium 9.3 mg/dL (8.4-10.2); Carbon Dioxide 25 mmol/L (22-32); Chloride 109 mmol/L (98-107); Estimated Glomerular Filt Rate > 60 mL/min (>60); Globulin 2.7 g/dL (1.7-4.1); Glucose 92 mg/dL (70-99); HEMOLYSIS < 15 (0-50); Potassium 4.2 mmol/L (3.4-5.1); Sodium 138 mmol/L (137-145); Total Protein 6.3 g/dL (6.3-8.2)
[2024-12-15 13:20] LABS: Free T4, Direct Thyroxine 1.18 ng/dL (0.78-2.19)
[2024-12-15 13:34] LABS: Thyroid Stimulating Hormone 1.59 uIU/mL (0.47-4.68)
[2024-12-15 14:10] LABS: Folate 9.7 ng/mL (2.76-20.0); Vitamin B12 573 pg/mL (239-931)
== END ==
PROVIDERS: PCP Family Medicine; Referring Provider Internal Medicine; Visit Provider Internal Medicine
DX: E06.9 Thyroiditis, unspecified (principal); D53.1 Other megaloblastic anemias, not elsewhere classified; N28.1 Cyst of kidney, acquired; Z85.51 Personal history of malignant neoplasm of bladder
CPT/HCPCS: 36415; 80053; 82607; 82746; 84439; 84443